=== PATIENT | female | born 2000 | race Caucasian/White ===

== ENCOUNTER 2020-10-31 12:31 | Emergency (ER) | payer BC ==
[~2020-10-31] VITALS: Ht 172.7 cm; Wt 63.6 kg
[2020-10-31] MEDS ORDERED: JUNETAB PO (12:44)
--- NOTE | 2020-10-31 13:23 | REP ---
INDICATION: TRAUMA. COMPARISON: Left tibia fibula series today TECHNIQUE: Four views FINDINGS: The distal tibia and fibular without fracture or focal lesion. The mortise joint is symmetric and preserved. The talar dome shows no osteochondral defect. Subtalar joints are intact. There are no heel spurs. The talonavicular and calcaneocuboid joints are unremarkable. Visualized tarsal bones and their articulations intact. Do not see soft tissue swelling about the medial aspect of the ankle but anterior laterally there is some swelling evident about the ankle and distal pretibial region. IMPRESSION: 1. No visible or displaced fracture or focal bone lesion about the ankle. There is some soft tissue swelling anterolateral aspect at and above the ankle joint level into the pretibial region. No other finding. <Electronically signed by Pineda Timmons > 10/31/20 [id number]
--- NOTE | 2020-10-31 13:25 | REP ---
INDICATION: TRAUMA. COMPARISON: Ankle series this date TECHNIQUE: Four views FINDINGS: Tibia and fibula show no fracture or focal bone lesion along their entire course there is some soft tissue swelling pretibial region the distal 1/4 of that tibia extending to the ankle joint on the lateral view. No abnormal soft tissue calcifications or avulsions visualized hindfoot and knee grossly unremarkable. IMPRESSION: 1. Pretibial swelling along the distal 1/4 of the the tibia to the level of the ankle joint without fracture, avulsion, focal bone lesion, foreign body or other acute finding. <Electronically signed by Pineda Timmons > 10/31/20 [id number]
[2020-10-31] MEDS ORDERED: ACETAMINOPHEN TAB 650MG DOSE (2X325MG) PO ONE (14:35)
[2020-10-31] MEDS ORDERED: BACITRACIN OINTMENT 30GM TUBE TOP STA (14:46)
[2020-10-31 15:26] VITALS: BP 118/81
== END 2020-10-31 15:41 | disposition home or self-care (01) ==
LOC: M ED 12:31
DX: R60.9 Edema, unspecified (principal); S80.12XA Contusion of left lower leg, initial encounter; S00.31XA Abrasion of nose, initial encounter; W22.8XXA Striking against or struck by other objects, initial encounter; Y92.828 Other wilderness area as the place of occurrence of the external cause; Z79.83 Long term (current) use of bisphosphonates